=== PATIENT | female | born 2000 | race Caucasian/White ===

== ENCOUNTER 2023-04-21 17:20 | Observation (INO) | payer OTHER ==
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
[2023-04-21] MEDS ORDERED: SODIUM CHLORIDE 0.9% 500 ML 500 ML IV STA (19:29)
--- NOTE | 2023-04-21 19:53 | CT ---
EXAMINATION TYPE: CT brain wo con DATE OF EXAM: 04/21/2023 COMPARISON: None INDICATION: pt fell and hit head on her dresser DLP: 1173.4 mGycm, Automated exposure control for dose reduction was used. CONTRAST: None CT of the brain is performed utilizing 3 mm thick sections through the posterior fossa and 3 mm thick sections through the remaining calvarium. Study is performed within 24 hours of arrival to the hosp [facility]. No abnormal hyperdensity is present to suggest an acute intracranial hemorrhage. No mass lesion is evident. No acute infarcts are evident. Ventricles and sulci are appropriate for the patient age. Paranasal sinuses and mastoid air cells within the [id number] are clear. No acute fractures are evident. IMPRESSION: 1. No acute intracranial process. Follow-up MRI can be performed as clinically indicated.
[2023-04-21 20:13] LABS: Anisocytosis Slight; Basophils % (A) 0 %; Eosinophils # (A) 0.2 k/uL (0-0.7); Eosinophils % (A) 3 %; HCT 34.4 % (34.0-46.0); HGB 10.8 gm/dL (11.4-16.0); Hypochromasia Slight; Lymphocytes # (A) 3.2 k/uL (1.0-4.8); Lymphocytes % (A) 39 %; MCH 25.3 pg (25.0-35.0); MCHC 31.3 g/dL (31.0-37.0); MCV 80.6 fL (80.0-100.0); Mean Platelet Volume 6.9; Monocytes # (A) 0.4 k/uL (0-1.0); Monocytes % (A) 5 %; Neutrophils # (A) 4.2 k/uL (1.3-7.7); Neutrophils % (A) 52 %; Platelet Count 345 k/uL (150-450); RBC 4.27 m/uL (3.80-5.40); RDW 16.2 % (11.5-15.5); WBC 8.1 k/uL (3.8-10.6)
[2023-04-21 20:27] LABS: ALT 33 U/L (4-34); AST 30 U/L (14-36); African American GFR (CKD) >90 (>60 ml/min/1.73 sqM); Albumin 4.1 g/dL (3.5-5.0); Alkaline Phosphatase 45 U/L (38-126); Anion Gap 4 mmol/L; Blood Urea Nitrogen 14 mg/dL (7-17); Calcium 9.2 mg/dL (8.4-10.2); Carbon Dioxide 26 mmol/L (22-30); Chloride 107 mmol/L (98-107); Glucose 85 mg/dL (74-99); Non-African American GFR(CKD) >90 (>60 ml/min/1.73 sqM); Potassium 4.6 mmol/L (3.5-5.1); Sodium 137 mmol/L (137-145); Total Bilirubin 0.3 mg/dL (0.2-1.3)
[2023-04-21 20:34] LABS: INR 1.1 (<1.2); Prothrombin Time 11.4 sec (9.0-12.0)
[2023-04-21 20:58] LABS: Appearance,Urine Clear (Clear); Bilirubin,Urine Negative (Negative); Blood,Urine Negative (Negative); Color,Urine Colorless; Glucose,Urine (UA) Negative (Negative); Ketones,Urine Negative (Negative); Leukocyte Esterase,Urine Negative (Negative); Nitrite,Urine Negative (Negative); PH, Urine 7.5 (5.0-8.0); Protein,Urine Negative (Negative); Specific Gravity,Urine 1.013 (1.001-1.035); Urobilinogen,Urine <2.0 mg/dL (<2.0)
[2023-04-21] MEDS ORDERED: LORazepam 2 MG/ML INJ IV STA (21:28)
[2023-04-21] MEDS ORDERED: NALOXONE 0.4 MG/ML 1 ML VIAL IV PRN (22:38)
--- NOTE | 2023-04-21 23:11 | XR ---
EXAM: XR Chest, 2 Views CLINICAL HISTORY: ITS.REASON XR Reason: palpitations TECHNIQUE: Frontal and lateral views of the chest. COMPARISON: No relevant prior studies available. FINDINGS: Lungs: Unremarkable. No consolidation. Pleural space: Unremarkable. No pneumothorax. Heart: Unremarkable. No cardiomegaly. Mediastinum: Unremarkable. Bones/joints: Unremarkable. IMPRESSION: Normal chest x-rays.
[2023-04-21 23:56] LABS: T4, Free (Free Thyroxine) 1.41 ng/dL (0.78-2.19)
[2023-04-22] MEDS ORDERED: ONDANSETRON 4 MG TAB PO PRN (10:50)
[2023-04-22] MEDS ORDERED: IBUPROFEN 600 MG TAB PO PRN (10:50)
[2023-04-22] MEDS ORDERED: diphenhydrAMINE 25 MG CAP PO PRN (10:50)
[2023-04-22] MEDS ORDERED: MAGNESIUM PO PRN (10:50)
[2023-04-22] MEDS ORDERED: VITAMIN D3 PO PRN (10:50)
[2023-04-22] MEDS ORDERED: ZINC PO PRN (10:50)
[2023-04-22] MEDS ORDERED: DOCUSATE 100 MG CAP PO PRN (10:50)
[2023-04-22] MEDS ORDERED: LOPERAMIDE 2 MG CAP PO PRN (10:50)
[2023-04-22] MEDS ORDERED: CALCIUM PO PRN (10:50)
[2023-04-22] MEDS: LORazepam 2 MG/ML INJ IV PRN ×2 (10:57→17:36)
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
[2023-04-22] MEDS: busPIRone HCl 10 MG TAB PO SCH ×3 (12:03→20:20)
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
[2023-04-22] MEDS: SODIUM CHLORIDE 0.9% 1,000 ML IV SCH ×2 (16:20)
[2023-04-22] MEDS ORDERED: MIRTAZAPINE 15 MG TAB PO SCH (21:00)
[2023-04-23] MEDS: SODIUM CHLORIDE 0.9% 1,000 ML IV SCH ×2 (02:45→12:08)
--- NOTE | 2023-04-23 07:22 | CA ---
Transthoracic Echo Report Name: Darlene Tomlinson Age: 22 Gender: F : 2000 Exam Date: 04/22/2023 12:43 Exam Location: [place] [facility] Ht (in): 65 Wt (lb): 110 Ordering Physician: Anika Rodriguez Attending/Referring Phys: Michael GEE Energy Conservation Engineer Allen Ware Procedure CPT: Indications: tachycardia Cardiac Hx: Technical Quality: Fair Contrast 1: Total Dose (mL): Contrast 2: Total Dose (mL): MEASUREMENTS (Male / Female) Normal Values 2D ECHO LV Diastolic Diameter PLAX 2.9 cm 4.2 - 5.9 / 3.9 - 5.3 cm LV Systolic Diameter PLAX 2.1 cm IVS Diastolic Thickness 0.8 cm 0.6 - 1.0 / 0.6 - 0.9 cm LVPW Diastolic Thickness 0.8 cm 0.6 - 1.0 / 0.6 - 0.9 cm LV Relative Wall Thickness 0.6 RV Internal Dim ED PLAX 2.3 cm LVOT Diameter 1.8 cm Aortic Root Diameter 2.6 cm LV Diastolic Volume MOD BP 43.7 cm??? 67 - 155 / 56 - 104 cm??? LV Systolic Volume MOD BP 15.0 cm??? 22 - 58 / 19 - 49 cm??? LV Ejection Fraction MOD BP 65.8 % >= 55 % LV Cardiac Index MOD BP 2026.8 cm???/min???m??? LV Diastolic Volume MOD 4C 44.8 cm??? LV Systolic Volume MOD 4C 16.0 cm??? LV Ejection Fraction MOD 4C 64.2 % LV Cardiac Index MOD 4C 2028.4 cm???/min???m??? LV Diastolic Length 4C 7.3 cm LV Systolic Length 4C 5.9 cm LV Diastolic Volume MOD 2C 40.2 cm??? LV Systolic Volume MOD 2C 12.9 cm??? LV Ejection Fraction MOD 2C 67.9 % LV Cardiac Index MOD 2C 1922.8 cm???/min???m??? LV Diastolic Length 2C 6.9 cm LV Systolic Length 2C 5.4 cm LA Volume 25.5 cm??? 18 - 58 / 22 - 52 cm??? DOPPLER AV Peak Velocity 130.9 cm/s AV Peak Gradient 6.9 mmHg AV Mean Velocity 92.0 cm/s AV Mean Gradient 3.9 mmHg AV Velocity Time Integral 21.7 cm MV Peak Velocity 101.9 cm/s MV Peak Gradient 4.2 mmHg MV Mean Velocity 59.6 cm/s MV Mean Gradient 1.7 mmHg MV Velocity Time Integral 17.6 cm MR Peak Velocity 201.0 cm/s MR Peak Gradient 16.2 mmHg Mitral E Point Velocity 67.0 cm/s Mitral A Point Velocity 49.7 cm/s Mitral E to A Ratio 1.3 MV Deceleration Time 228.2 ms MV E' Velocity 12.3 cm/s Mitral E to MV E' Ratio 5.4 TR Peak Velocity 204.6 cm/s TR Peak Gradient 16.7 mmHg Right Ventricular Systolic Press 21.7 mmHg PV Peak Velocity 104.2 cm/s PV Peak Gradient 4.3 mmHg FINDINGS Left Ventricle Normal LV size and wall thickness. Left ventricular ejection fraction is estimated at 55-60 %. Normal left ventricular wall motion. Right Ventricle Normal right ventricular size. Right Atrium Normal right atrial size. Left Atrium Normal left atrial size. Mitral Valve Structurally normal mitral valve. Trace MR. Aortic Valve Trileaflet aortic valve. No aortic valve stenosis or regurgitation. Tricuspid Valve Structurally normal tricuspid valve. Trace TR. Pulmonic Valve Structurally normal pulmonic valve. No pulmonic regurgitation. Pericardium Normal pericardium. Aorta Normal size aortic root. CONCLUSIONS 1. Normal left ventricular size and systolic function 2. Trace mitral and tricuspid regurgitation Previewed by: Dr. Teresita Neal MD (Electronically Signed) Final Date: 23 April 2023 07:20
[2023-04-23 08:09] VITALS: TEMP 98.2
[2023-04-23] MEDS ORDERED: THIAMINE 100 MG TAB PO SCH (09:00)
[2023-04-23] MEDS ORDERED: MULTIVITAMINS, THERA 1 EACH TAB PO SCH (09:00)
[2023-04-23] MEDS: busPIRone HCl 10 MG TAB PO SCH ×2 (09:17→15:54)
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
[2023-04-23] MEDS: LORazepam 2 MG/ML INJ IV PRN (12:07)
[2023-04-23 15:32] VITALS: BMI 17.8
[2023-04-23 15:34] VITALS: BP 110/74; PULSE 116; RESP 22
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
== END 2023-04-23 16:48 | disposition home or self-care (01) ==
LOC: EC 17:20 → OBSVTOIN 22:40 → INTOOBSV 22:40 → 3SCARD 22:40 → 6NMEDSUR 04-22 07:10 → UNDODISIN 04-23 16:48
PROVIDERS: ADMIT Hospitalist; ATTEND Hospitalist
DX: R55 Syncope and collapse (principal); G90.A Postural orthostatic tachycardia syndrome [POTS]; F11.23 Opioid dependence with withdrawal; F41.9 Anxiety disorder, unspecified; F32.A Depression, unspecified; S09.90XA Unspecified injury of head, initial encounter; W01.190A Fall on same level from slipping, tripping and stumbling with subsequent striking against furniture, initial encounter; F17.290 Nicotine dependence, other tobacco product, uncomplicated; Z79.899 Other long term (current) drug therapy; Z91.42 Personal history of forced labor or sexual exploitation
CPT/HCPCS: 96376 ×3; 96361; 96374; 99285; 36415; 93005; 93306; 85379; 84439; 80053; 84443; 84484; 85025; 85610; 81003; 81025; 71046; 70450; G0378 ×3; J2060 ×3